=== PATIENT | female | born 1960 | race Hispanic/Latino ===

== ENCOUNTER 2024-12-28 06:42 | Day surgery (SDC) | payer MEDICARE ==
[2024-12-23 12:26] LABS: IMMATURE GRANULOCYTE ABSOLUTE 0.02 K/uL (0-1); NUCLEATED RED BLOOD CELLS 0.0 % (0.0-0.19); PLATELET COUNT (AUTO) 245 K/uL (130-400); RED BLOOD CELL COUNT(AUTO) 4.92 MIL/uL (4.00-5.50); RED CELL DISTRIBUTION WIDTH 13.6 % (11.0-15.5); WHITE BLOOD COUNT (AUTO) 6.8 K/uL (4.8-10.8)
[2024-12-23 12:27] VITALS: BP 152/77; PULSE 62; RESP 17; TEMP 97.3
--- NOTE | 2024-12-23 12:30 | EKG ---
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
[2024-12-23 12:37] LABS: INR 0.98 (0.85-1.15)
[2024-12-23 12:44] LABS: ASPARTATE AMINOTRANSFERASE 15.0 U/L (10-37); CREATININE 0.7 mg/dL (0.5-1.0); GLOMERULAR FILTR. RATE CALC 96.0 mL/min (>90); GLUCOSE,RANDOM 135.0 mg/dL (70-105); SODIUM SERUM 143.0 mmol/L (136-145); TOTAL PROTEIN, SERUM 6.5 g/dL (6.0-8.3); UREA NITROGEN, BLOOD 16.0 mg/dL (7-18)
[2024-12-23 13:08] LABS: APPEARANCE,URINE CLEAR (CLEAR); GLUCOSE, URINE (UA) NEGATIVE (NEGATIVE); LEUKOCYTE ESTERASE ,URINE NEGATIVE Leu/uL (NEGATIVE); NITRATE,URINE NEGATIVE (NEGATIVE); OCCULT BLOOD,URINE NEGATIVE (NEGATIVE)
[2024-12-23 13:17] LABS: ADD UA MICROSCOPIC NO
[~2024-12-28] VITALS: Ht 162.6 cm; Wt 86.7 kg
[2024-12-28] VITALS (14 sets, daily range): BP systolic 125–167; BP diastolic 68–83; PULSE 61–88; RESP 13–16; TEMP 97.4–97.8
[~2024-12-28 06:42] MED LIST: BIMA2.5D4 OD; BRIM5DRO5 OU; BROM3DRO OD; DIFL5DRO6 OD; METF-444 PO; MONT-39 PO; OLME20TA68 PO; PROG100C11 PO; SERT-438 PO; [UNRECOGNIZED DRUG - CODE] OD
[2024-12-28] MEDS ORDERED: 0.9%NACL 1000ML 1,000 ML IV ONE (07:36)
--- NOTE | 2024-12-28 09:00 | NUR ---
U/S GD LT BREAST NEEDLE LOCALIZATION PATIENT ARRIVED TO RADIOLOGY. BREAST PREPPED WITH STERILE TECHNIQUE. PERFORMED BY . PUNCTURE SITE TO LT BREAST. TOLERATED PROCEDURE. END OF PROCEDURE AT 0840. DRESSING APPLIED NO BLEEDING NOTED. PT TAKEN TO MAMMOGRAM TO VERIFY WIRE PLACEMENT. PLACEMENT VERIFIED BY . REPORT GIVEN TO Dave FIGUEREDO RN. TRANSPORTED TO OR HOLDING AREA VIA STRETCHER. DENIES PAIN. A&O. DRESSING DRY AND INTACT.
[2024-12-28] MEDS ORDERED: LIDOCAINE PF 100MG/5ML (2%) SYRINGE 5ML ONE (09:34)
[2024-12-28] MEDS ORDERED: MIDAZOLAM HCL 1 MG/ML 2ML VIAL ONE (09:34)
[2024-12-28] MEDS ORDERED: LIDOCAINE HCL 1% 20 ML VIAL ONE (09:38)
[2024-12-28] MEDS ORDERED: GLYCOPYRROLATE 0.2 MG/ML 5 ML VIAL ONE (10:07)
[2024-12-28] MEDS: LIDOCAINE HCL 1% 10 ML VIAL INJ ONE (10:45)
--- NOTE | 2024-12-28 11:27 | OP ---
Operative Note: DATE OF PROCEDURE: 12/28/24 DESCRIPTION OF PROCEDURE: Left breast 5:00 excision with oncoplastic closure of 20 sq cm SURGEON: NAHUM CARDOZO MD JUNIOR GRAPHIC DESIGNER: [] PREOPERATIVE DIAGNOSIS: Left breast mass 5:00 POSTOPERATIVE DIAGNOSIS: Same INDICATIONS: Patient with a left breast 5:00 lesion that the biopsy showed a premalignant lesion. Needed for excision. DESCRIPTION OF PROCEDURE: Patient is taken to the radiology suite where she had needle localization of the lesion. Once this was done by radiology she is brought to the operating room. She is placed on the operating table in a supine position. Once general endotracheal anesthesia is achieved patient's bilateral chest and breast are prepped and draped in sterile fashion. We then proceeded to place our attention to the left breast create a hidden scar periareolar incision from the 3 to the 9 o'clock position on the inferior aspect of the nipple. Dissected through the skin and subcutaneous tissue to expose breast tissue. We then created a skin flaps superiorly inferiorly and laterally that were thick. We identified our wire and follow did as it went towards the muscle posteriorly. We dissected circumferentially around it and then posteriorly dissected all the way down to the fascia of the pectoralis muscle .. We then excised the specimen completely with the wire as part of our specimen. We marked our specimen with long white marked the lateral margin, long black mariaa the superficial margin, the short black mariaa the medial margin. We sent off the specimen to mammography to confirm we had good margins and that our clip was within our specimen. Hemostasis was obtained within the cavity. The the partial mastectomy defect was measured at 5 x 4 x 4 cm after we had excised our specimen. I then proceeded to create skin and subcutaneous skin flaps to release the breast tissue underneath to create tissue advancement flap for closure. I then released the breast tissue of the pectoralis fascia to create tissue advancement flap for the breast tissue. The length of the tunneling required was additional 2 cm in each direction. Once the flaps were created I proceeded to mariaa the inside of the specimen cavity with metal clips, in case we have to return for reexcision we know where the cavity was located. I then proceeded to approximate the flaps in 3 layers using 2-0 Vicryl in interrupted fashion. The breast tissue was advanced 2 cm in each direction, and the subcutaneous tissue was advanced 2 cm in each direction. We then proceeded to do a deep dermal sutures as well with 3-0 Vicryl. And then proceeded to close the skin with a 4- 0 Monocryl in running subcuticular fashion. The total area of the advancement flap was 20 cm. Once we had heard back from mammography that we had the clip within our specimen with good margins we then proceeded to apply the Dermabond over top of our incision. All counts were correct x2 at the end of the procedure. Patient tolerated the procedure well. ESTIMATED BLOOD LOSS: Minimal Specimens: Left breast 5:00 mass Complications: None immediate Devices left in place: None NAHUM CARDOZO MD Dec 28, 2024 11:26
--- NOTE | 2024-12-28 16:15 | HMCIMG ---
SPECIMEN RADIOGRAPH: Two intraoperative specimen radiographs were performed and submitted for interpretation. The specimen contains the Kopans wire and the mass...
--- NOTE | 2024-12-28 16:18 | HMCIMG ---
US GUIDED BRST LOC/PERC 1ST IR HISTORY: 64-year-old female with left breast lesion for needle localization. TECHNIQUE: Prior studies were reviewed. Informed consent was obtained after explaining the procedure and potential complications to the patient. The patient was placed supine. Timeout performed. The left breast was prepped and draped in a sterile fashion. Local anesthesia applied to the skin and subcutaneous tissues at entry site. Then, 7 cm Kopans needle was advanced through a 0.76 x 1.06 x 1.21 cm hypoechoic nodule at Location. Needle was removed leaving the localizing wire anchored with its tip Depth cm past the nodule. Sterile dressing applied. CC and ML mammograms performed confirmed adequate wire position. Patient tolerated the procedure well and was sent to the OR for excisional biopsy. No complications encountered. IMPRESSION: Ultrasound-guided presurgical localization of left breast nodule.
--- NOTE | 2025-01-04 08:23 | HMCIMG ---
DIGITAL left breast DIAGNOSTIC MAMMOGRAM Technique: The digital mammographic examination left breast post needle localization in craniocaudal, mediolateral oblique views along with CAD was obtained. History: This is a 64 years year-old female undergoing left breast biopsy Reference:Prior mammogram from outside study is not available Breast composition: Breast composition C: The breasts are heterogeneously dense, which may obscure small masses. Finding: The digital mammographic examination of left breast in craniocaudal and mediolateral oblique view demonstrate Kopan wire in satisfactory position with a biopsy marker in place.. There is no evidence of any dendritic mass, cluster microcalcification or architectural distortion. The retromammary fat appears to be normal. IMPRESSION: Ultrasound-guided needle localization demonstrate the wire to be in satisfactory position with a biopsy marker in place. FINAL ASSESSMENT: Post-procedure Mammogram for Marker Placement. NOTE: IF A WORK-UP OF THIS PATIENT LEADS TO A BIOPSY, PLEASE FORWARD A COPY OF THE PATHOLOGY REPORT TO OUR OFFICE REQUIRED BY [facility] EFFECTIVE FEBRUARY 17, 1994. A NEGATIVE MAMMOGRAM SHOULD NOT PRECLUDE BIOPSY OF A CLINICALLY PALPABLE SUSPICIOUS MASS, 10% OF BREAST CANCERS ARE MAMMOGRAPHICALLY OCCULT. THIS MAMMOGRAPHY FACILITY IS FULLY ACCREDITED BY THE FOOD AND DRUG [employer]MINISTRATION (FDA). THANK YOU FOR THIS REFERRAL.
== END 2024-12-28 12:42 | disposition home or self-care (01) ==
LOC: DAH 06:42
PROVIDERS: ATTEND Student in an Organized Health Care Education/Training Program
DX: N60.22 Fibroadenosis of left breast (principal); Z79.01 Long term (current) use of anticoagulants; E66.01 Morbid (severe) obesity due to excess calories; E11.9 Type 2 diabetes mellitus without complications; F41.9 Anxiety disorder, unspecified; F32.A Depression, unspecified; I10 Essential (primary) hypertension; Z68.31 Body mass index [BMI] 31.0-31.9, adult; Z90.710 Acquired absence of both cervix and uterus; Z90.49 Acquired absence of other specified parts of digestive tract; Z79.84 Long term (current) use of oral hypoglycemic drugs; Z79.899 Other long term (current) drug therapy
CPT/HCPCS: 80053; 85025; 85610; 85730; 81003; 36415; 93005; 19301; 77065; 82948 ×2; 88305; 88342; 76098; 19285; 88341; A6260; J1100; A4663; J3010; J7030; J0665 ×2; J3490 ×3; J2003; J2250; J2704; J2405; J0690; C1819; A4930; A4649; A4215; A4213; A4222; A4221; A4216; A4223 ×2